=== PATIENT | male | born 1945 | race Caucasian/White ===

== ENCOUNTER 2016-12-08 10:43 | Emergency (ER) | payer MEDICARE ==
[~2016-12-08] VITALS: Ht 165.1 cm; Wt 59.9 kg
[~2016-12-08 10:43] MED LIST: CETI10CA PO; CHOL100011 PO; OXYC-302 PO; VITA1CAP PO
[2016-12-08] MEDS ORDERED: KETOROLAC 30 MG/1 ML IVPush ONE (11:30)
[2016-12-08] MEDS ORDERED: MORPHINE SULFATE 4 MG/ML, 1ML IVPush PRN (11:30)
[2016-12-08] MEDS ORDERED: ONDANSETRON 2MG/ML, 2ML IVPush ONE (11:30)
[2016-12-08] MEDS ORDERED: KETOROLAC 30 MG/1 ML ONE (11:36)
[2016-12-08 11:40] LABS: PATH.CAST-FLAG NOT PRESENT; SPERM-FLAG NOT PRESENT; SRC-FLAG NOT PRESENT; XTAL-FLAG NOT PRESENT; YLC-FLAG NOT PRESENT
[2016-12-08] MEDS ORDERED: SODIUM CHLORIDE 0.9% 1,000 ML IV ONE (12:00)
[2016-12-08 12:01] LABS: HEMATOCRIT 32.3 % (39.2-51.8); HEMOGLOBIN 10.9 g/dL (13.7-18.0); WHITE BLOOD COUNT 6.6 x10^3/uL (3.4-10)
[2016-12-08 12:08] LABS: ASPARTATE AMINO TRANSFERASE 14 U/L (15-37); BLOOD UREA NITROGEN 36 mg/dL (7-18)
[2016-12-08 13:49] VITALS: BP 139/82
== END 2016-12-08 13:53 | disposition home or self-care (01) ==
LOC: ED 11:07
DX: D64.9 Anemia, unspecified (principal); R10.9 Unspecified abdominal pain
CPT/HCPCS: 36415; 74000; 74176; 80053; 81001; 83690; 85025; 87086; 96361; 96374; 99285; J1885; J7030